=== PATIENT | male | born 1960 | race Caucasian/White ===

== ENCOUNTER 2019-08-20 06:29 | Day surgery (SDC) | payer OTHER ==
[~2019-08-20] VITALS: Ht 175.3 cm; Wt 108.9 kg
[2019-08-20] MEDS ORDERED: fentaNYL 0.05 MG/ML VIAL ONE (09:24)
[2019-08-20] MEDS ORDERED: LIDOCAINE 1% 500 MG/50 ML VIAL ONE (09:24)
[2019-08-20] MEDS ORDERED: LIDOCAINE 2% 100 MG/5 ML UJET TP ONE (09:25)
== END 2019-08-20 10:55 | disposition home or self-care (01) ==
LOC: MDS 06:29 → MMU 07:14 → MDS 10:55
PROVIDERS: ATTEND Internal Medicine Gastroenterology
DX: Z12.11 Encounter for screening for malignant neoplasm of colon (principal); D12.4 Benign neoplasm of descending colon; E66.9 Obesity, unspecified; J45.909 Unspecified asthma, uncomplicated; Z98.890 Other specified postprocedural states; Z79.899 Other long term (current) drug therapy; Z68.34 Body mass index [BMI] 34.0-34.9, adult
CPT/HCPCS: 45385; J3010; J2001